=== PATIENT | female | born 1945 ===

== ENCOUNTER 2023-02-08 09:10 | Inpatient (IN) ==
[~2023-02-08 09:10] MED LIST: Buffered Lidocaine 1% SYRIN 1 ml INTRADERM ONE; Lactated Ringers 1000 ml BAG 1,000 ML IV SCH; Midazolam 2 mg/2 ml VIAL 1 mg/ml 2 ml VIAL (2 mg) ONE; fentaNYL 100 mcg/2 ml 50 MCG/ML VIAL ONE
[2023-02-08] MEDS ORDERED: ceFAZolin 2 GM in NS PREMIX 2 GM/100 ML BAG IVPB ONE (09:52)
[2023-02-08 10:23] LABS: Rapid COVID-19 Molecular Undetected (Undetected)
[2023-02-08] MEDS ORDERED: ROPIVACAINE 5 MG/ML 30 ML BTL (0.5%) ONE ×2 (10:50→11:15)
[2023-02-08] MEDS ORDERED: HYDROmorphone 1 MG/1 ML SYRINGE IV PRN (11:10)
[2023-02-08] MEDS ORDERED: fentaNYL 100 mcg/2 ml 50 MCG/ML VIAL IV PRN (11:10)
[2023-02-08] MEDS ORDERED: Ondansetron 4 mg VIAL 2 MG/ML 2 ml VIAL IV PRN ×2 (11:10→14:37)
[2023-02-08] MEDS ORDERED: Acetaminophen IV 1 GM/100ML 1,000 MG/100 ML BAG IV PRN (11:10)
[2023-02-08] MEDS ORDERED: Naloxone 0.4 mg VIAL 0.4 mg/ml 1 ml VIAL IV PRN (11:10)
[2023-02-08] MEDS ORDERED: fentaNYL 100 mcg/2 ml 50 MCG/ML VIAL ONE (11:55)
[2023-02-08] MEDS ORDERED: Tranexamic Acid 1 GM/100ML BAG 2,000 MG/200 ML BAG IV ONE (12:05)
[2023-02-08] MEDS ORDERED: Ondansetron 4 mg VIAL 2 MG/ML 2 ml VIAL ONE (12:16)
[2023-02-08] MEDS ORDERED: Glycopyrrolate IV 0.2 MG/ML 1 ML VIAL ONE (12:29)
[2023-02-08] MEDS ORDERED: Propofol 10 MG/ML 20 ML BTL ONE ×2 (13:11→13:44)
[2023-02-08] MEDS ORDERED: Lidocaine 2% PF 5 ML VIAL ONE (13:11)
[2023-02-08] MEDS ORDERED: Phenylephrine IV 10 MG/ML 1 ml VIAL ONE (14:23)
[2023-02-08] MEDS ORDERED: Morphine 2 MG/ML SYRINGE IV PRN (14:37)
[2023-02-08] MEDS ORDERED: Ondansetron ODT 4 mg TAB 4 MG TAB PO PRN (14:37)
[2023-02-08] MEDS ORDERED: Lactulose 30 ml UDC PO PRN (14:37)
[2023-02-08] MEDS ORDERED: Magnesium Hydroxide LIQ 30 ML UDC PO PRN (14:37)
[2023-02-08] MEDS: Lactated Ringers 1000 ml BAG 1,000 ML IV SCH (15:57)
[2023-02-08] MEDS ORDERED: Polyethylene Glycol 3350 17 GM PACKET PO PRN (19:49)
[2023-02-08] MEDS: Magnesium Hydroxide LIQ 30 ML UDC PO SCH (20:43)
[2023-02-08] MEDS: ceFAZolin 1 GM ADVAN 1 GM in NS 0.9% 50 ML 50 ML IVPB SCH (20:43)
[2023-02-09] MEDS: Lactated Ringers 1000 ml BAG 1,000 ML IV SCH (01:58)
[2023-02-09] MEDS: ceFAZolin 1 GM ADVAN 1 GM in NS 0.9% 50 ML 50 ML IVPB SCH ×2 (03:43→11:30)
[2023-02-09 07:06] LABS: Hematocrit 31.6 % (35-45); Hemoglobin 11.3 g/dL (11.5-14.3); Mean Platelet Volume 7.6 fL (7.5-11.2); Platelet Count 239 10^3/uL (150-450)
[2023-02-09 07:20] LABS: Calcium 8.6 mg/dL (8.6-10.3); Creatinine, Serum 1.26 mg/dL (0.51-0.95); Potassium 4.2 mmol/L (3.5-5.0); eGFR CKD-EPI 44.5 (>60)
[2023-02-09] MEDS: Magnesium Hydroxide LIQ 30 ML UDC PO SCH (08:02)
[2023-02-09] MEDS ORDERED: Vitamin THERAPEUTIC TAB PO SCH (09:00)
[2023-02-09 11:02] VITALS: BP 125/68
== END 2023-02-09 13:03 | disposition home or self-care (01) | DRG 470 ==
LOC: AA 09:10 → SSU 14:37
PROVIDERS: ADMIT Orthopaedic Surgery Adult Reconstructive Orthopaedic Surgery; ATTEND Orthopaedic Surgery Adult Reconstructive Orthopaedic Surgery